=== PATIENT | female | born 1990 | race Caucasian/White ===

== ENCOUNTER 2018-10-22 09:42 | Inpatient (IN) | payer BC ==
[~2018-10-22] VITALS: Ht 160 cm; Wt 75.0 kg
[2018-12-11] MEDS ORDERED: COENZYME Q-10200 M1 PO (22:08)
[2018-12-11] MEDS ORDERED: MAGNESIUM250 M1 PO (22:09)
[2018-12-11] MEDS ORDERED: PRENATAL MVI (22:09)
[2018-12-11] MEDS ORDERED: FERRO-TIME325 MG PO (22:10)
[2018-12-11] MEDS ORDERED: UNISOM25 MG PO (22:10)
[2018-12-14] VITALS (37 sets, daily range): BP systolic 93–170; BP diastolic 50–83; PULSE 66–151; TEMP 97.9–99.6
--- NOTE | 2018-12-14 07:00 | NUR ---
0700- Pt arrives on unit ambulatory for scheduled induction with . Pt into bathroom to change into gown. 0710- Pt into bed, EFM and TOCO on and tracing. Assessment completed. Consents signed. IV started without difficulty, Pt tolerated well.
[2018-12-14] MEDS ORDERED: PERCOCET 325 MG1 TA2 PO (08:24)
[2018-12-14] MEDS ORDERED: MOTRIN 800800 MG/TAB PO (08:24)
[2018-12-14 08:41] LABS: BASO # 0.1 (0.0-0.2); BASO % 0.3 % (0.0-2.0); EOS # 0.2 (0.0-0.7); GRAN # 12.6 (1.4-6.5); GRAN % 80.6 % (42.2-75.2); HEMOGLOBIN 11.6 g/dl (12.5-16.0); LYMPH # 1.6 (1.2-3.4); MEAN CELL VOLUME 86 fl (80.0-100.0); MEAN CORPUSCULAR HEMOGLOBIN 29 pg (27.0-31.0); MEAN CORPUSCULAR HGB CONC 34 g/dl (33.0-37.0); MEAN PLATELET VOLUME 10.7 fl (7.4-10.4); MONO # 1.2 (0.1-0.6); MONO % 7.5 % (1.7-9.3); PLATELET COUNT 238 K/mm3 (130-400); RED BLOOD COUNT 3.95 M/mm3 (4.10-5.30); REDCELL DISTRIBUTION WIDTH-CV 13.5 % (11.5-14.5)
[2018-12-14 08:42] LABS: HEMATOCRIT 33.9 % (37.0-47.0)
--- NOTE | 2018-12-14 12:40 | NUR ---
1235- Pt and room prepped for pushing. Grant out without difficulty. 1240- Dr Tenorio at bedside, SVE complete. Pt begins pushing with UCs. MD remains at bedside for 2-3 pushing cycles before going back to nurses station. Pt continues pushing with UCs.
--- NOTE | 2018-12-14 13:30 | NUR ---
FHR variable noted after each contraction, slow return to baseline noted over 30-40secs, moderate varibility noted throughout.
--- NOTE | 2018-12-14 13:45 | NUR ---
1326- Dr Tenorio at bedside to evaluate pushing, remains at bedside till 1334. Remains on unit. 1342- Dr Tenorio at bedside, evaluates pushing, remains at bedside till 1350.
--- NOTE | 2018-12-14 14:03 | NUR ---
1403- Dr Tenorio at bedside. Evaluates pushing. Remains at bedside with Pt, Pt continues pushing with UCs.
--- NOTE | 2018-12-14 14:46 | NUR ---
1435- Delta, nursery RN and Rodolfo RN called to bedside for delivery. Pt continues pushing with [facility]. 1446- of viable male infant. Infant placed on mother's abd where dried and stimulated, tended to by nursery RN. Pitocin off. Cord clamped and cut. Cord blood obtained. 1450- Spontaneous delivery of placenta. Pitocin restarted at 333ml/hr. Fundus massaged to firm by MD. Perineum repaired by MD, see delivery note. 1502- Staight cath by MD using red bia, unmeasured. Pericare completed, ice pack to perineum. Pt repositioned to high-fowlers, tolerated well. 1510- Juice given to Pt. Pt states she does not feel well. Pt encouraged to rest. Baby swaddled and given to dad per request. Pt appears pale, O2 sat check 97-99%. 1520- Large emesis noted, unmeasured. Pt states she feels much better after vomiting. Encouraged to rest. remains with Pt, call light within reach.
--- NOTE | 2018-12-14 16:40 | NUR ---
1640- RN called to bedside, Pt states she vomited again, had vaginal bleeding gush. Fundus firm, no free-flow or clots noted. Pericare completed, chux changed. Pt going to try to eat something light.
--- NOTE | 2018-12-14 17:35 | NUR ---
1735- Pt sits upwright in bed for removal of epidural catheter, removed without difficulty, Pt begins feeling dizzy and light-headed, lays head down. Pt denies nausea. 174- Staight cath by this RN without difficulty, 150mls of dark yellow urine noted. 1744- Dr Tenorio called, see physician notification. 175- Pt updated on plan of care, denies questions. Pericare compeleted. Ice pack, underwear, and clean chux under Pt. Pt tolerated well.
[2018-12-14 18:34] LABS: HEMATOCRIT 26.9 % (37.0-47.0); HEMOGLOBIN 9.1 g/dl (12.5-16.0)
[2018-12-15] VITALS: BP 118/59; PULSE 70; TEMP 98.3
[2018-12-15 04:00] VITALS: BP 104/56; PULSE 74; TEMP 97.6
[2018-12-15 08:00] VITALS: BP 100/62; PULSE 93; TEMP 98.4
== END 2018-12-15 17:30 | disposition home or self-care (01) | DRG 807 ==
LOC: LDRO → EDSTATUS 12-12 06:43 → LDRO 12-12 09:42 → LDR 12-14 06:44 → OB 12-14 20:48
PROVIDERS: ADMIT Obstetrics & Gynecology
PROC: 10E0XZZ Delivery of Products of Conception, External Approach (ICD-10-PCS; principal; 2018-12-14)
PROC: 3E033VJ Introduction of Other Hormone into Peripheral Vein, Percutaneous Approach (ICD-10-PCS; 2018-12-14)
PROC: 10907ZC Drainage of Amniotic Fluid, Therapeutic from Products of Conception, Via Natural or Artificial Opening (ICD-10-PCS; 2018-12-14)
PROC: 0W8NXZZ Division of Female Perineum, External Approach (ICD-10-PCS; 2018-12-14)
DX: O48.0 Post-term pregnancy (principal); Z37.0 Single live birth; Z3A.40 40 weeks gestation of pregnancy; O76 Abnormality in fetal heart rate and rhythm complicating labor and delivery; O99.344 Other mental disorders complicating childbirth; F41.9 Anxiety disorder, unspecified; I34.1 Nonrheumatic mitral (valve) prolapse; O99.02 Anemia complicating childbirth; D64.9 Anemia, unspecified
CPT/HCPCS: J2590; J7120

== ENCOUNTER → 2018-12-11 | Outpatient (CLI) | payer BC ==
[~2018-12-11] VITALS: Ht 160 cm; Wt 75.9 kg
[~2018-12-11] MED LIST: COENZYME Q-10200 M1 PO; FERRO-TIME325 MG PO; MAGNESIUM250 M1 PO; MOTRIN 800800 MG/TAB PO; PERCOCET 325 MG1 TA2 PO; PRENATAL MVI; UNISOM25 MG PO
[2018-12-11 22:15] VITALS: BP 135/64; PULSE 109; TEMP 99.1
== END ==
LOC: LDRO 21:51
DX: O62.9 Abnormality of forces of labor, unspecified (principal); Z3A.39 39 weeks gestation of pregnancy